=== PATIENT | male | born 1960 | race Caucasian/White ===

== ENCOUNTER → 2019-03-02 | Outpatient (REF) | payer BC ==
[~2019-03-02] MED LIST: OMEP40CA2 PO; SIMV40TA2 PO
[2019-03-02 14:13] LABS: H PYLORI QUALITATIVE IgG NEGATIVE (NEGATIVE)
== END ==
LOC: M LAB REF 12:36
PROVIDERS: ATTEND Nurse Practitioner Adult Health
DX: R47.02 Dysphasia (principal)

== ENCOUNTER 2024-04-27 12:10 | Day surgery (SDC) | payer BC ==
[~2024-04-27] VITALS: Ht 177.8 cm; Wt 95.7 kg
[~2024-04-27 12:10] MED LIST changes: -OMEP40CA2 PO; +OMEP40CA4 PO; -SIMV40TA2 PO; +SIMV40TA20 PO
[2024-04-27] MEDS ORDERED: propofoL 200 MG/20 ML VIAL As Ordered ONE (12:32)
[2024-04-27] MEDS ORDERED: LIDOCAINE 2% 100MG/5ML SDV (FOR ANES.) As Ordered ONE (12:32)
[2024-04-27] MEDS ORDERED: dexmedeTOMIDine (4MCG/ML)200MCG/50ML BTL (PRECEDEX) As Ordered ONE (12:33)
[2024-04-27] MEDS ORDERED: GLYCOPYRROLATE INJ 0.2 MG/ML 2 ML VIAL As Ordered ONE (13:37)
[2024-04-27 14:04] VITALS: TEMP 97.4
[2024-04-27 14:35] VITALS: BP 156/84; O2SAT 100
== END 2024-04-27 14:44 | disposition home or self-care (01) ==
LOC: M OPP 12:10
PROVIDERS: ATTEND Internal Medicine Gastroenterology
DX: Z12.11 Encounter for screening for malignant neoplasm of colon (principal); Z86.0100 Personal history of colon polyps, unspecified; R12 Heartburn; K64.0 First degree hemorrhoids; K57.30 Diverticulosis of large intestine without perforation or abscess without bleeding; R06.83 Snoring; Z79.899 Other long term (current) drug therapy
CPT/HCPCS: 43239; 45378; 88305; J1596

== ENCOUNTER 2025-02-14 09:17 | Emergency (ER) | payer BC, OTHER ==
[~2025-02-14] VITALS: Ht 177.8 cm; Wt 95.1 kg
[2025-02-14] MEDS ORDERED: METH-1164 PO (11:24)
[2025-02-14 11:44] VITALS: BP 142/79; TEMP 98.7; O2SAT 99
== END 2025-02-14 11:47 | disposition home or self-care (01) ==
LOC: M ED 09:17
DX: S76.912A Strain of unspecified muscles, fascia and tendons at thigh level, left thigh, initial encounter (principal); X50.0XXA Overexertion from strenuous movement or load, initial encounter; Y92.89 Other specified places as the place of occurrence of the external cause; Y93.02 Activity, running; Y99.9 Unspecified external cause status; Z79.899 Other long term (current) drug therapy